=== PATIENT | male | born 1965 | race Caucasian/White ===

== ENCOUNTER 2022-07-04 09:18 | Observation (INO) | payer BC ==
[~2022-07-04] VITALS: Ht 182.9 cm; Wt 106.6 kg
[2022-07-04 10:32] LABS: HEMOGLOBIN 15.6 gm/dl (14.0-17.5); RED BLOOD COUNT 4.31 M/UL (4.20-5.50); WHITE BLOOD COUNT 6.7 K/UL (4.5-11.0)
[2022-07-04 11:08] LABS: BUN/CREATININE RATIO 40 (0-10)
[2022-07-04] MEDS ORDERED: ALLOPURINOL300 MG PO (13:02)
[2022-07-04] MEDS ORDERED: ZETIA10 MG PO (13:02)
[2022-07-04] MEDS ORDERED: IBU800 MG PO (13:03)
[2022-07-04] MEDS ORDERED: HYDROCHLOROTH12.5 M1 PO (13:03)
[2022-07-04] MEDS ORDERED: LISINOPRIL40 MG PO (13:05)
[2022-07-04] MEDS ORDERED: METOPROLOL SUC100 MG PO (13:06)
[2022-07-04] MEDS ORDERED: QUETIAPINE FUM100 MG PO (13:06)
[2022-07-04] MEDS ORDERED: CRESTOR40 MG PO (13:07)
[2022-07-04] MEDS ORDERED: FLOMAX 0.4 MG0.4 MG PO (13:07)
[2022-07-04] MEDS ORDERED: MELOXICAM15 MG PO (13:08)
[2022-07-05 06:26] LABS: WHITE BLOOD COUNT 6.4 K/UL (4.5-11.0)
[2022-07-05 07:00] LABS: BUN/CREATININE RATIO 31 (0-10)
[2022-07-05] MEDS ORDERED: METOPROLOL SUCC50 MG PO (16:14)
[2022-07-05] MEDS ORDERED: COMBIVENT RESPIM4 GM INH (16:53)
[2022-07-05] MEDS ORDERED: ASPIRIN EC81 MG PO (17:30)
== END 2022-07-05 18:20 | disposition home or self-care (01) ==
LOC: ER1 09:18 → CDU 11:51 → MED SURG 4 11:51
PROVIDERS: Physician Assistant; ADMIT Internal Medicine Infectious Disease
DX: R55 Syncope and collapse (principal); D75.89 Other specified diseases of blood and blood-forming organs; I10 Essential (primary) hypertension; E78.5 Hyperlipidemia, unspecified; R91.1 Solitary pulmonary nodule; M10.9 Gout, unspecified; F17.210 Nicotine dependence, cigarettes, uncomplicated; F10.10 Alcohol abuse, uncomplicated; Z20.822 Contact with and (suspected) exposure to COVID-19; Z88.1 Allergy status to other antibiotic agents; Z79.899 Other long term (current) drug therapy
CPT/HCPCS: ECHO; 70450; 71045; 71250; 80048; 80053; 80061; 81001; 82550; 82553; 82607; 82746; 83735; 84439; 84443; 84484; 85025; 93005; 93270; 93306; 99285; G0378; U0002